=== PATIENT | female | born 1965 | race Caucasian/White ===

== ENCOUNTER 2017-06-17 15:30 | Outpatient (CLI) | payer BC | END 2017-06-17 15:31 | disposition home or self-care (01) | LOC: BICMAMMO 15:30 | PROVIDERS: ATTEND Obstetrics & Gynecology | DX: Z12.31 Encounter for screening mammogram for malignant neoplasm of breast (principal); Z80.6 Family history of leukemia | CPT/HCPCS: 77063; 77067 ==

== ENCOUNTER 2018-08-09 08:08 | Outpatient (CLI) | payer BC ==
--- NOTE | 2018-08-09 08:28 | MMO ---
Bilateral MAMMO Bilat Screen [facility]. CLINICAL HISTORY: Patient is 52 years old and is seen for screening. The patient has the following family history of breast cancer: paternal grandmother, 60's. The patient has no personal history of cancer. The patient has a history of bilateral Explantation in 2007 and bilateral Implants in 1992. VIEWS: The views performed were: bilateral craniocaudal with tomosynthesis and bilateral mediolateral oblique with tomosynthesis. FILMS COMPARED: The present examination has been compared to prior imaging studies performed at [facility] on 02/06/2014, 04/17/2015, 05/13/2016 and 06/17/2017. MAMMOGRAM FINDINGS: There are scattered fibroglandular densities. There are no suspicious masses, suspicious calcifications, or new areas of architectural distortion. IMPRESSION: THERE IS NO MAMMOGRAPHIC EVIDENCE OF MALIGNANCY. A ROUTINE FOLLOW-UP MAMMOGRAM IN 1 YEAR IS RECOMMENDED. THE RESULTS OF THIS EXAM WERE SENT TO THE PATIENT. ACR BI-RADS Category 1 - Negative MAMMOGRAPHY NOTE: 1. A negative mammogram report should not delay a biopsy if a dominant of clinically suspicious mass is present. 2. Approximately 10% to 15% of breast cancers are not detected by mammography. 3. Adenosis and dense breasts may obscure an underlying neoplasm.
== END 2018-08-09 08:09 | disposition home or self-care (01) ==
LOC: BICMAMMO 08:08
PROVIDERS: ATTEND Obstetrics & Gynecology
DX: Z12.31 Encounter for screening mammogram for malignant neoplasm of breast (principal); Z80.3 Family history of malignant neoplasm of breast; Z98.82 Breast implant status
CPT/HCPCS: 77063; 77067